=== PATIENT | female | born 1980 | race African-American/Black ===

== ENCOUNTER 2019-05-23 18:12 | Emergency (ER) | payer SELFPAY ==
[2019-05-23 18:18] VITALS: BP 116/80; PULSE 92; TEMP 97.9; BMI 31.0
[2019-05-23] MEDS ORDERED: FAMOTIDINE 20 MG/50 ML IVPB 20 MG/50 ML MG IVPB ONE ×2 (20:03→20:42)
[2019-05-23] MEDS ORDERED: ONDANSETRON 4 MG/2 ML VIAL IVPUSH ONE ×2 (20:03→22:08)
[2019-05-23] MEDS ORDERED: MAG HYDROX/AL HYDROX/SIMETH -MYLANTA- ORAL SUSPENSION PO ONE (20:04)
--- NOTE | 2019-05-23 20:05 | PDOC ---
History of Present Illness - General Chief Complaint: Pain Stated Complaint: ABD PAIN Time Seen by Provider: 05/23/19 19:11 History Source: Patient - History of Present Illness Timing/Duration: reports: other (yesterday) Past History - Past Medical History Allergies/Adverse Reactions: Allergies Allergy/AdvReac Type Severity Reaction Status Date / Time No Known Allergies Allergy Verified 05/23/19 18:17 Home Medications: Ambulatory Orders Famotidine [Pepcid] 20 mg PO BID #28 tablet 05/23/19 Mag Hydrox/Al Hydrox/Simeth [Mylanta Suspension -] 30 ml PO Q6H #1 bottle Ondansetron HCl [Zofran] 4 mg PO Q8H #8 tablet 05/23/19 COPD: No Other medical history: herniated discs - Surgical History Cholecystectomy: Yes - Psycho Social/Smoking Cessation Hx Smoking History: Never smoked Review of Systems - Review of Systems Constitutional: No: Chills, Fever ABD/GI: Yes: Diarrhea, Nausea, Vomiting, Abdominal cramping. No: Blood Streaked Bowels, Constipated, Rectal Bleeding, Tarry Stools : No: Dysuria, Flank Pain, Hematuria Neurological: Yes: Headache. No: Tingling, Weakness, Dizziness *Physical Exam - Vital Signs Last Vital Signs Temp Pulse Resp BP Pulse Ox 97.9 F 92 H 18 116/80 100 05/23/19 18:14 05/23/19 18:14 05/23/19 18:14 05/23/19 18:14 05/23/19 18:14 - Physical Exam General Appearance: Yes: Appropriately Dressed, Mild Distress HEENT: positive: Normal Voice Neck: positive: Supple Respiratory/Chest: positive: Lungs Clear, Normal Breath Sounds. negative: Respiratory Distress Cardiovascular: positive: Regular Rate, S1, S2 Gastrointestinal/Abdominal: positive: Normal Bowel Sounds, Tender (sig ttp to epigastrium), Soft. negative: Distended, Guarding, Rebound Musculoskeletal: negative: CVA Tenderness Integumentary: positive: Dry, Warm Neurologic: positive: Fully Oriented, Alert, Normal Mood/Affect ED Treatment Course - LABORATORY CBC & Chemistry Diagram: 05/23/19 20:40 05/23/19 20:40 Medical Decision Making - Medical Decision Making 05/23/19 19:59 39 yo F, herniated disc to LS spine, herniated discs to LS, on percocet for back pain and scheduled for back surgery in the near future, chronic headaches, st/[facility] remotely, here with upper abdominal pain with nausea vomiting since last night. Patient states she had similar symptoms last year and was told possible gastritis in the ER. Patient admits that she has a very poor diet and usually does not maintain adequate nutrition. Also c/o her usual headache. No new symptoms associated with headache see exam Possible gastritis/GERD -trial of GI cocktail -labs -reasess OSORIO Chronic Attributes to decreased pp intake per pt No neuro eval in past No red flags at this time -pain control>reassess 05/23/19 23:26 Labs unremarkable. Pt reports feeling significantly better and able to tolerate p.o. Declines urine at this time. Dc with meds and GI follow-up Discharge - Discharge Information Problems reviewed: Yes Clinical Impression/Diagnosis: Upper abdominal pain Nausea and vomiting Qualifiers: Vomiting type: unspecified Vomiting Intractability: non-intractable Qualified Code(s): R11.2 - Nausea with vomiting, unspecified Headache Qualifiers: Headache type: unspecified Headache chronicity pattern: unspecified pattern Intractability: not intractable Qualified Code(s): R51 - Headache Condition: Improved Disposition: HOME - Additional Discharge Information Prescriptions: Famotidine [Pepcid] 20 mg PO BID #28 tablet Mag Hydrox/Al Hydrox/Simeth [Mylanta Suspension -] 30 ml PO Q6H #1 bottle Ondansetron HCl [Zofran] 4 mg PO Q8H #8 tablet - Follow up/Referral Referrals: Leo Montgomery MD [Staff Physician] - - Patient Discharge Instructions Patient Printed Discharge Instructions: Gastritis Additional Instructions: Take medications as prescribed and follow-up with Dr. Montgomery of GI - Post Discharge Activity Work/Back to School Note: Back to Work
[2019-05-23] MEDS ORDERED: SODIUM CHLORIDE 1,000 ML IV STA (20:09)
[2019-05-23] MEDS ORDERED: ACETAMINOPHEN 1000 MG/100 ML VIAL (NON FORMULARY) IVPB ONE (20:11)
[2019-05-23] MEDS ORDERED: METOCLOPRAMIDE HCL INJECTION 10 MG/2 ML VIAL IVPB ONE (20:12)
[2019-05-23] MEDS ORDERED: ACETAMINOPHEN INJECTION 100 ML IVPB ONE (20:42)
[2019-05-23] MEDS ORDERED: MAG HYDROX/AL HYDROX/SIMETH 30 ML UNIT-DOSE CUP ONE (20:42)
[2019-05-23] MEDS ORDERED: METOCLOPRAMIDE HCL INJECTION 10 MG/2 ML VIAL ONE (20:42)
[2019-05-23 20:52] LABS: BASO % 0.2 % (0-2.0); HEMATOCRIT 39.6 % (32.4-45.2); HEMOGLOBIN 13.3 GM/dL (10.7-15.3); LYMPH % 13.8 % (8-40); MCH 30.1 pg (25.7-33.7); MCHC 33.6 g/dl (32.0-36.0); MEAN CELL VOLUME 89.7 fl (80-96); MEAN PLT VOLUME 8.8 fl (7.5-11.1); MONO % 4.7 % (3.8-10.2); NEUT % 81.3 % (42.8-82.8); PLATELET COUNT 348 K/MM3 (134-434); RBC 4.41 M/mm3 (3.60-5.2); RDW 14.2 % (11.6-15.6); WHITE BLOOD COUNT 6.7 K/mm3 (4.0-10.0)
[2019-05-23 21:38] LABS: ALBUMIN 3.7 g/dl (3.4-5.0); BILIRUBIN,TOTAL 0.4 mg/dL (0.2-1); BLOOD UREA NITROGEN 11.3 mg/dL (7-18); CALCIUM 9.5 mg/dL (8.5-10.1); CREATININE 0.9 mg/dL (0.55-1.3); POTASSIUM 4.2 mmol/L (3.5-5.1); TOT PROT 8.9 g/dl (6.4-8.2)
[2019-05-23] MEDS ORDERED: ONDANSETRON 4 MG/2 ML VIAL ONE (22:14)
== END 2019-05-23 23:51 | disposition home or self-care (01) ==
LOC: JER 18:12
PROC: 3E033GC Introduction of Other Therapeutic Substance into Peripheral Vein, Percutaneous Approach (ICD-10-PCS; principal; 2019-05-23)
PROC: 3E033NZ Introduction of Analgesics, Hypnotics, Sedatives into Peripheral Vein, Percutaneous Approach (ICD-10-PCS; 2019-05-23)
PROC: 3E033GC Introduction of Other Therapeutic Substance into Peripheral Vein, Percutaneous Approach (ICD-10-PCS; 2019-05-23)
PROC: 3E033GC Introduction of Other Therapeutic Substance into Peripheral Vein, Percutaneous Approach (ICD-10-PCS; 2019-05-23)
PROC: 3E0337Z Introduction of Electrolytic and Water Balance Substance into Peripheral Vein, Percutaneous Approach (ICD-10-PCS; 2019-05-23)
DX: K29.70 Gastritis, unspecified, without bleeding (principal); R51 Headache
CPT/HCPCS: 36415; 80053; 83690; 84703; 85025; 99284-25; J0131; J7030

== ENCOUNTER → 2021-03-16 | Day surgery (SDC) | payer OTHER ==
[2021-03-14 14:34] VITALS: BMI 34.1
[~2021-03-16] MED LIST: ACETAMINOPHEN 1000 MG/100 ML VIAL IVPB ONE; BUPIVACAINE HCL/PF 0.25% (2.5MG/ML) 10 ML VIAL IJ ONE; BUPIVACAINE HCL/PF 0.25% (2.5MG/ML) 10 ML VIAL ONE; DEXAMETHASONE SOD PHOSPHATE 4 MG/1 ML VIAL ONE; KETOROLAC TROMETHAMINE 30 MG/1 ML VIAL ONE; LACTATED RINGERS SOLUTION 1,000 ML IV SCH; MIDAZOLAM HCL 2 MG/2 ML SINGLE DOSE VIAL ONE; ONDANSETRON 4 MG/2 ML VIAL IVPUSH PRN; ONDANSETRON 4 MG/2 ML VIAL ONE; PROPOFOL 20 ML ONE; TRIAMCINOLONE ACET 40MG/1ML VIAL ONE; ceFAZolin SODIUM 1 GM VIAL ONE; oxyCODONE HCL 5 MG TABLET ONE; oxyCODONE HCL 5 MG TABLET PO PRN
[2021-03-16 13:40] VITALS: PULSE 75; TEMP 98.6
[2021-03-16 14:16] VITALS: BP 133/84
== END | disposition home or self-care (01) ==
LOC: FASU 08:55
PROVIDERS: ATTEND Orthopaedic Surgery Orthopaedic Surgery of the Spine
PROC: 3E0U3NZ Introduction of Analgesics, Hypnotics, Sedatives into Joints, Percutaneous Approach (ICD-10-PCS; 2021-03-16)
PROC: 0SCD4ZZ Extirpation of Matter from Left Knee Joint, Percutaneous Endoscopic Approach (ICD-10-PCS; principal; 2021-03-16 11:46)
DX: S83.282A Other tear of lateral meniscus, current injury, left knee, initial encounter (principal); M23.611 Other spontaneous disruption of anterior cruciate ligament of right knee; M65.862 Other synovitis and tenosynovitis, left lower leg; M22.42 Chondromalacia patellae, left knee; M94.262 Chondromalacia, left knee; M23.42 Loose body in knee, left knee
CPT/HCPCS: 84703; 94760; J0131